=== PATIENT | female | born 1945 | race Caucasian/White ===

== ENCOUNTER 2017-05-17 17:09 | Observation (INO) | payer MEDICARE, OTHER ==
[~2017-05-17] VITALS: Ht 165.1 cm; Wt 88.5 kg
[~2017-05-17 17:09] MED LIST: ASPIRIN EC81 M1 PO; ATIVAN1 MG PO; BETAPACE 80 MG80 MG PO; DEPLIN PO; ELIQUIS5 MG PO; LIPITOR10 MG PO; LISINOPRIL10 MG GT; LOMOTIL TABLET1 TAB PO; NORCO 10/325 TA1 TA1 PO; NORVASC10 MG PO; NORVASC5 MG PO; PAXIL PO; PAXIL20 MG PO; PLAVIX75 MG PO; PRILOSEC20 MG PO; TENORMIN25 MG PO; TENORMIN50 MG PO; VITAMIN B-1000 MCG/M IM; ZOFRAN4 MG PO
[2017-05-17 18:37] LABS: BASOPHILS 0.7 % (0-2); HEMATOCRIT 39.2 % (36.0-48.0); HEMOGLOBIN 11.9 g/dL (12-16); IMMATURE GRANULOCYTES 0.5 % (0-5); LYMPHOCYTES 20.1 % (15-50); MCH 26.5 pg (26.0-34.0); MCHC 30.4 g/dL (31.0-37.0); MCV 87.3 fL (80.0-100.0); MONOCYTES 5.8 % (2-11); NEUTROPHILS 71.9 % (40-80); RBC 4.49 10x6/uL (4.00-5.40); RDW 13.7 % (11.5-14.5); WBC 10.5 10x3/uL (4.8-10.8)
[2017-05-17 18:38] LABS: PLATELET COUNT 237 10x3/uL (130-400)
[2017-05-17 19:08] LABS: ALBUMIN 3.3 g/dL (3.4-5.0); ALKALINE PHOSPHATASE 114 U/L (46-116); ALT (SGPT) 13 U/L (10-68); BILIRUBIN - TOTAL 0.21 mg/dL (0.2-1.3); CALC OSMOLALITY 278 mosm/kg (275-300); CALCIUM 8.9 mg/dL (8.5-10.1); CARBON DIOXIDE 28.2 mmol/L (21.0-32.0); CHLORIDE - SERUM 102 mmol/L (98-107); CREATININE - SERUM 2.5 mg/dL (0.6-1.3); GLUCOSE 110 mg/dL (74-106); POTASSIUM - SERUM 4.3 mmol/L (3.5-5.1); PROTEIN - SERUM 7.1 g/dL (6.4-8.2); SODIUM 137 mmol/L (136-145); UREA NITROGEN 24 mg/dL (7-18); eGFR NON AFRICAN AMERICAN 20 mL/min (90-120)
[2017-05-17 19:13] LABS: TROPONIN-I < 0.017 ng/mL (0.000-0.060)
[2017-05-17 22:38] LABS: CKMB 0.3 U/L (0.0-3.6); CREATINE KINASE 24 UL (21-215)
[2017-05-17 22:41] LABS: TROPONIN-I < 0.017 ng/mL (0.000-0.060)
[2017-05-17 23:09] VITALS: BP 158/64; BMI 31.8
[2017-05-17] MEDS ORDERED: PAXIL40 MG PO (23:36)
[2017-05-17] MEDS ORDERED: TENORMIN25 MG PO (23:37)
[2017-05-17] MEDS ORDERED: TIAZAC/CARDIZE120 MG PO (23:38)
[2017-05-18 00:30] VITALS: BP 160/83
[2017-05-18 04:30] VITALS: BP 143/71
[2017-05-18 05:30] LABS: CKMB 0.9 U/L (0.0-3.6); CREATINE KINASE 67 UL (21-215); TROPONIN-I < 0.017 ng/mL (0.000-0.060)
[2017-05-18 07:44] LABS: ANION GAP 16.1 mmol/L (8-16); BASOPHILS 0.6 % (0-2); CALCIUM 8.6 mg/dL (8.5-10.1); CARBON DIOXIDE 23.2 mmol/L (21.0-32.0); CREATININE - SERUM 2.3 mg/dL (0.6-1.3); EOSINOPHILS 2.9 % (0-7); HEMATOCRIT 36.6 % (36.0-48.0); HEMOGLOBIN 11.3 g/dL (12-16); IMMATURE GRANULOCYTES 0.3 % (0-5); LYMPHOCYTES 31.6 % (15-50); MCHC 30.9 g/dL (31.0-37.0); MCV 87.6 fL (80.0-100.0); MEAN PLATELET VOLUME 11.5 fL (7.4-10.4); MONOCYTES 7.6 % (2-11); PLATELET COUNT 255 10x3/uL (130-400); POTASSIUM - SERUM 4.3 mmol/L (3.5-5.1); RBC 4.18 10x6/uL (4.00-5.40); RDW 13.9 % (11.5-14.5); WBC 12.7 10x3/uL (4.8-10.8)
[2017-05-18 09:29] VITALS: BP 167/82
[2017-05-18 11:13] LABS: CKMB 0.8 U/L (0.0-3.6); CREATINE KINASE 60 UL (21-215); TROPONIN-I < 0.017 ng/mL (0.000-0.060)
[2017-05-18 12:23] VITALS: BP 124/66
[2017-05-18 12:53] VITALS: Ht 165.1 cm; Wt 88.5 kg
[2017-05-18 13:19] LABS: APPEARANCE HAZY (CLEAR); BILIRUBIN NEGATIVE (NEGATIVE); COLOR STRAW (YELLOW); GLUCOSE NEGATIVE (NEGATIVE); KETONE NEGATIVE (NEGATIVE); NITRITE NEGATIVE (NEGATIVE); PROTEIN NEGATIVE (NEGATIVE); UROBILINOGEN NORMAL (NORMAL)
[2017-05-18 13:25] LABS: BACTERIA MANY /hpf (NONE SEEN); EPITHELIAL CELLS 0-5 /hpf (0-5); RED CELLS - URINE RARE /hpf (0-5)
[2017-05-18 15:56] VITALS: BP 162/75
[2017-05-18 19:00] VITALS: BP 172/72
[2017-05-19] VITALS: BP 166/84
[2017-05-19 04:00] VITALS: BP 152/69
[2017-05-19 05:45] LABS: BASOPHILS 0.7 % (0-2); EOSINOPHILS 3.9 % (0-7); HEMATOCRIT 33.5 % (36.0-48.0); IMMATURE GRANULOCYTES 0.3 % (0-5); LYMPHOCYTES 38.9 % (15-50); MCHC 29.9 g/dL (31.0-37.0); MCV 87.2 fL (80.0-100.0); MONOCYTES 7.7 % (2-11); NEUTROPHILS 48.5 % (40-80); PLATELET COUNT 205 10x3/uL (130-400); RBC 3.84 10x6/uL (4.00-5.40); RDW 13.9 % (11.5-14.5)
[2017-05-19 06:05] LABS: WBC 7.6 10x3/uL (4.8-10.8)
[2017-05-19 06:20] LABS: ALBUMIN 2.7 g/dL (3.4-5.0); ANION GAP 12.9 mmol/L (8-16); BILIRUBIN - TOTAL 0.3 mg/dL (0.2-1.3); CALCIUM 8.2 mg/dL (8.5-10.1); CARBON DIOXIDE 23.6 mmol/L (21.0-32.0); MAGNESIUM - SERUM 1.7 mg/dL (1.8-2.4); PHOSPHOROUS 3.4 mg/dL (2.5-4.9); POTASSIUM - SERUM 4.5 mmol/L (3.5-5.1); PROTEIN - SERUM 6.2 g/dL (6.4-8.2); URIC ACID 7.3 mg/dL (2.6-7.2)
[2017-05-19 08:06] VITALS: BP 147/73
[2017-05-19 09:14] LABS: % SATURATION 35 % (15-55); IRON 83 ug/dl (35-150); TOTAL IRON BIND CAPACITY 234 ug/dl (260-445); UNSAT IRON BIND CAPACITY 151 ug/dl (150-375)
[2017-05-19 13:03] VITALS: BP 158/99
[2017-05-19] MEDS ORDERED: CEFUROXIME250 MG PO (14:52)
[2017-05-19] MEDS ORDERED: PAXIL40 MG PO (15:04)
== END 2017-05-19 16:21 | disposition home or self-care (01) ==
LOC: D.ER 17:09 → D.EDHOLD 21:49 → OBSVTIME 21:49 → D.M2 22:11
PROVIDERS: Emergency Medicine; Family Medicine; Internal Medicine Nephrology
DX: R55 Syncope and collapse (principal); Z95.0 Presence of cardiac pacemaker; I48.0 Paroxysmal atrial fibrillation; Z86.73 Personal history of transient ischemic attack (TIA), and cerebral infarction without residual deficits; J44.9 Chronic obstructive pulmonary disease, unspecified; I25.10 Atherosclerotic heart disease of native coronary artery without angina pectoris; Z95.5 Presence of coronary angioplasty implant and graft; F03.90 Unspecified dementia, unspecified severity, without behavioral disturbance, psychotic disturbance, mood disturbance, and anxiety; I12.9 Hypertensive chronic kidney disease with stage 1 through stage 4 chronic kidney disease, or unspecified chronic kidney disease; N18.3 Chronic kidney disease, stage 3 (moderate); N17.9 Acute kidney failure, unspecified; N39.0 Urinary tract infection, site not specified; Z72.0 Tobacco use